=== PATIENT | female | born 1990 | race Caucasian/White ===

== ENCOUNTER 2019-10-20 19:17 | Outpatient (CLI) | payer MEDICAID ==
[2019-10-20] VITALS (15 sets, daily range): BP systolic 124–148; BP diastolic 64–94; PULSE 59–86; TEMP 97.9
[~2019-10-20] VITALS: Ht 147.3 cm; Wt 75.9 kg
--- NOTE | 2019-10-20 19:00 | NUR ---
G1L0. 39-1. Pt here from OB office. Orders called over by earlier. EFM and TOCO explained and applied. Pt juarez irregularly. Reports good movement. Plan of care explained to pt and boyfriend who verbalize understanding. VS and Assessment completed. Call light within reach.
[2019-10-20] MEDS ORDERED: PRENATAL MVI PO (19:26)
[2019-10-20 20:29] LABS: COLLECTION METHOD CLEAN CATCH
[2019-10-20 20:33] LABS: BASO % 0.1 % (0.0-2.0); EOS # 0.1 (0.0-0.7); EOS % 0.7 % (0-4.0); GRAN # 8.3 (1.4-6.5); GRAN % 73.1 % (42.2-75.2); HEMOGLOBIN 10.7 g/dl (12.5-16.0); LYMPH # 2.2 (1.2-3.4); MEAN CELL VOLUME 95 fl (80.0-100.0); MEAN CORPUSCULAR HEMOGLOBIN 32 pg (27.0-31.0); MEAN CORPUSCULAR HGB CONC 33 g/dl (33.0-37.0); MEAN PLATELET VOLUME 9.9 fl (7.4-10.4); MONO # 0.8 (0.1-0.6); MONO % 6.7 % (1.7-9.3); PLATELET COUNT 267 K/mm3 (130-400); RED BLOOD COUNT 3.38 M/mm3 (4.10-5.30)
[2019-10-20 20:36] LABS: PH 8 (5-8); SQUAMOUS EPITHELIAL 0-2 /hpf; URINE APPEARANCE Hazy; URINE BACTERIA Rare /hpf; URINE BILIRUBIN Negative (NEGATIVE); URINE BLOOD 2+ (NEGATIVE); URINE COLOR Yellow; URINE GLUCOSE Negative (NEGATIVE); URINE KETONE Negative (NEGATIVE); URINE LEUKOCYTE ESTERASE 1+ (NEGATIVE); URINE NITRATE Negative (NEGATIVE); URINE PROTEIN(semi-quant) Negative (NEGATIVE); URINE RBC 0-2 /hpf; URINE UROBILINOGEN Negative (NEGATIVE); URINE WBC 20-50 /hpf
[2019-10-20 20:45] LABS: HEMATOCRIT 32.2 % (37.0-47.0)
[2019-10-20 20:54] LABS: ALBUMIN 3.3 gm/dL (3.5-5.0); BILIRUBIN,TOTAL 0.3 mg/dL (0.0-1.0); CREATININE, serum 0.53 (0.52-1.25); POTASSIUM 3.4 mmol/L (3.4-5.0); TOTAL PROTEIN 6.5 gm/dL (6.4-8.2)
[2019-10-20 21:15] LABS: TRICYCLIC ANTIDEPRESS URINE NEGATIVE
--- NOTE | 2019-10-20 21:51 | NUR ---
updated on pts status. See physican notification. Monitors removed and instructed to change. 2200: Discharge instructions given to pt and who verbalize understanding. Pt ambulatory off unit and home with boyfriend.
== END 2019-10-20 22:00 | disposition home or self-care (01) ==
LOC: LDRO 19:17
PROVIDERS: Obstetrics & Gynecology
DX: O26.893 Other specified pregnancy related conditions, third trimester (principal); Z3A.39 39 weeks gestation of pregnancy

== ENCOUNTER 2019-10-22 10:59 | Inpatient (IN) | payer MEDICAID ==
[~2019-10-22] VITALS: Ht 147.3 cm; Wt 75.9 kg
[2019-10-22] VITALS (13 sets, daily range): BP systolic 114–154; BP diastolic 60–87; PULSE 55–86; TEMP 97.9–98.9
--- NOTE | 2019-10-22 10:45 | NUR ---
Patient to LR5 via wheelchair and very anxious/tense and uncomfortable with contractions. Patient into to bed, and FHR/TOCO monitors placed. Patient states "contractions started around 1199-0349 and had some spotting, water broke around [id number], contractions got alot stronger and closer together on the way here" Plan of care discussed. SVE done at this time and . Patient denies epidural at this time. Dr. Trent called and notified and admission orders obtained. 1055: IV started in left hand, blood obtained and to lab.
[~2019-10-22 10:59] MED LIST: PRENATAL MVI PO
--- NOTE | 2019-10-22 11:00 | NUR ---
Patient states she is feeling the need to push. SVE 9-100/[address] Trent called for delivery. 1110: Dr. Trent at bedside and assessing patient and FHR strip. 1112: SVE per physician-/+1 Patient prepped for vaginal delivery and begins to push with contractions. 1115: FHR baseline 120-125bpm. 1119: FHR decreasing to 115bpm. Patient continues to push with Dr. Trent and each contraction. 1124: Spontaneous vaginal delivery of viable male- head followed by body. to patients abdomen and bulb syringed. Cord clamped by Dr. Trent and cut by FOB. Edwin BRITT assumes care of infant. Cord blood obtained. 1127: Spontaneous vaginal delivery of placenta and pitocin bolus started per protocol at 333mU. Dr. Trent injects lidocaine to perineum and begins to repair laceration. Fundal massage done/bleeding WNL/firm. Pericare done/patient repositioned/ice pack to perineum. Plan of care discussed.
[2019-10-22 12:17] LABS: BASO % 0.2 % (0.0-2.0); EOS # 0.1 (0.0-0.7); EOS % 0.4 % (0-4.0); GRAN # 13.9 (1.4-6.5); HEMOGLOBIN 11.5 g/dl (12.5-16.0); LYMPH # 1.7 (1.2-3.4); LYMPH % 10.3 % (20.0-51.0); MEAN CELL VOLUME 96 fl (80.0-100.0); MEAN CORPUSCULAR HEMOGLOBIN 32 pg (27.0-31.0); MEAN CORPUSCULAR HGB CONC 33 g/dl (33.0-37.0); MEAN PLATELET VOLUME 10.1 fl (7.4-10.4); MONO % 5.7 % (1.7-9.3); PLATELET COUNT 292 K/mm3 (130-400); RED BLOOD COUNT 3.63 M/mm3 (4.10-5.30); REDCELL DISTRIBUTION WIDTH-CV 14.1 % (11.5-14.5)
[2019-10-22] MEDS ORDERED: ORAL PAIN REL9.35 GM MM (12:17)
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
[2019-10-22 15:41] LABS: TRICYCLIC ANTIDEPRESS URINE NEGATIVE
[2019-10-23 04:19] VITALS: BP 128/80; PULSE 71; TEMP 98.2
[2019-10-23 08:00] VITALS: BP 124/76; PULSE 76; TEMP 98.1
[2019-10-23] MEDS ORDERED: IBU800 M1 PO (08:03)
[2019-10-23] MEDS ORDERED: PERCOCET 325 MG1 TA2 PO (08:21)
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
--- NOTE | 2019-10-24 13:04 | NUR ---
workers compensation claims analyst spoke with MICHELLE Day, and advised of hospitalization and patient and family contact information.
== END 2019-10-23 13:53 | disposition home or self-care (01) | DRG 807 ==
LOC: LDRO 10:59 → LDR 11:00 → OB 14:40
PROVIDERS: Obstetrics & Gynecology; ADMIT Obstetrics & Gynecology
PROC: 10E0XZZ Delivery of Products of Conception, External Approach (ICD-10-PCS; principal; 2019-10-22)
PROC: 0KQM0ZZ Repair Perineum Muscle, Open Approach (ICD-10-PCS; 2019-10-22)
DX: O99.62 Diseases of the digestive system complicating childbirth (principal); Z37.0 Single live birth; K21.9 Gastro-esophageal reflux disease without esophagitis; O99.324 Drug use complicating childbirth; F12.90 Cannabis use, unspecified, uncomplicated; O70.1 Second degree perineal laceration during delivery; O99.344 Other mental disorders complicating childbirth; F90.9 Attention-deficit hyperactivity disorder, unspecified type; Z3A.39 39 weeks gestation of pregnancy
CPT/HCPCS: J2590